=== PATIENT | male | born 1975 | race Caucasian/White ===

== ENCOUNTER 2017-04-23 05:54 | Emergency (ER) | payer OTHER, BC ==
[2017-04-23] MEDS ORDERED: Ketorolac 60 MG/2 ML SDV IM ONE (06:14)
[2017-04-23] MEDS ORDERED: Ketorolac 60 MG/2 ML SDV ONE (06:14)
--- NOTE | 2017-04-23 06:59 | EDM.PDOC ---
ED HPI GENERAL MEDICAL PROBLEM - General Chief Complaint: Upper Extremity Injury/Pain Stated Complaint: RIGHT ARM PAIN Time Seen by Provider: 04/23/17 06:56 Source of Information: Reports: Patient History Limitations: Reports: No Limitations - History of Present Illness INITIAL COMMENTS - FREE TEXT/NARRATIVE: History of present illness: []Patient fell on the standing position at work at 5 AM with an outstretched arm and felt sudden, sharp, grinding pain in his right shoulder. When he got up he initially could not move his shoulder joint, he states like his arm was hanging weight. After a few minutes he felt a pop in his shoulder with instant relief briefly but then he felt it "pop" again. He is unable to move his shoulder and has severe pain. He denies any neck, chest or rib pain, shortness of breath. Review of systems: As per history of present illness and below otherwise all systems reviewed and negative. Past medical history: As per history of present illness and as reviewed below otherwise noncontributory. Surgical history: As per history of present illness and as reviewed below otherwise noncontributory. Social history: No reported history of drug or alcohol abuse. Family history: As per history of present illness and as reviewed below otherwise noncontributory. Physical exam: General: Well developed, well nourished in NAD HEENT: Atraumatic, normocephalic, pupils reactive, negative for conjunctival pallor or scleral icterus, mucous membranes moist, throat clear, neck supple, nontender, trachea midline. Lungs: Clear to auscultation, breath sounds equal bilaterally, chest nontender. Heart: S1S2, regular, negative for clicks, rubs, or JVD. Abdomen: Soft, nondistended, nontender. Negative for masses or hepatosplenomegaly. Negative for costovertebral tenderness. Pelvis: Stable nontender. Genitourinary: Deferred. Rectal: Deferred. Extremities: Asymmetry of his shoulders with the right shoulder appearing flattened anteriorly, Neurovascular unremarkable. Neuro: Awake, alert, oriented. Cranial nerves II through XII unremarkable. Cerebellum unremarkable. Motor and sensory unremarkable throughout. Exam nonfocal. Diagnostics: []Right Shoulder x-ray Therapeutics: []Dilaudid for pain Impression: [] Plan: [] Definitive disposition and diagnosis as appropriate pending reevaluation and review of above. right upper extremity;right shoulder;right rib Pain Score (Numeric/FACES): 10 - Related Data Allergies Allergy/AdvReac Type Severity Reaction Status Date / Time No Known Allergies Allergy Verified 04/23/17 05:57 Home Meds: Home Meds . [No Known Home Meds] 04/23/17 [History] Past Medical History - Past Health History Medical/Surgical History: Denies Medical/Surgical History Social & Family History - Family History Family Medical History: Noncontributory - Tobacco Use Smoking Status *Q: Current Every Day Smoker Years of Tobacco use: 20 Packs/Tins Daily: 1 - Recreational Drug Use Recreational Drug Use: No Review of Systems - Review of Systems Review Of Systems: See Below (See history of present illness) ED EXAM, GENERAL - Physical Exam Exam: See Below (See history of present illness) ED TRAUMA EXTREMITY PROCEDURES - Joint Reduction Site: Shoulder (R) Technique: Other (Using the Tai technique (massage) without sedation and was well-tolerated with minimal pain) Number of Attempts: 1 Post-Reduction Imaging: Completely Reduced, No Fracture Seen Joint Reduction Complications: Yes Course - Vital Signs Last Recorded V/S: Last Vital Signs Temp 36.1 C 04/23/17 05:56 Pulse 71 04/23/17 07:42 Resp 12 04/23/17 07:42 BP 156/100 H 04/23/17 07:42 Pulse Ox 94 L 04/23/17 07:42 - Orders/Labs/Meds Orders: Active Orders 24 hr Category Date Time Status Shoulder Comp Rt [CR] Stat Exams 04/23/17 06:08 Taken Sodium Chloride 0.9% [Saline Flush] Med 04/23/17 07:07 Active 10 ml FLUSH ASDIRECTED PRN Sodium Chloride 0.9% [Saline Flush] Med 04/23/17 07:07 Active 2.5 ml FLUSH ASDIRECTED PRN DME for Discharge [COMM] Stat Oth 04/23/17 07:52 Ordered Saline Lock Insert [OM.PC] Stat Oth 04/23/17 07:07 Ordered Medication Orders Sodium Chloride (Saline Flush) 10 ml FLUSH ASDIRECTED PRN PRN Reason: Keep Vein Open Sodium Chloride (Saline Flush) 2.5 ml FLUSH ASDIRECTED PRN PRN Reason: Keep Vein Open Meds: Medications Generic Name Dose Route Start Last Admin Trade Name Freq PRN Reason Stop Dose Admin Sodium Chloride 10 ml 04/23/17 07:07 Saline Flush FLUSH ASDIRECTED PRN Keep Vein Open Sodium Chloride 2.5 ml 04/23/17 07:07 Saline Flush FLUSH ASDIRECTED PRN Keep Vein Open Discontinued Medications Generic Name Dose Route Start Last Admin Trade Name Coleen PRN Reason Stop Dose Admin Hydromorphone HCl 1 mg 04/23/17 07:07 04/23/17 07:15 Dilaudid IVPUSH 04/23/17 07:08 1 mg ONETIME ONE Administration Ketorolac Tromethamine 60 mg 04/23/17 06:14 04/23/17 06:18 Toradol IM 04/23/17 06:15 60 mg ONETIME ONE Administration Ketorolac Tromethamine Confirm 04/23/17 06:14 04/23/17 06:19 Toradol Administered 04/23/17 06:15 Not Given Dose 60 mg .ROUTE .STK-MED ONE Ondansetron HCl 4 mg 04/23/17 07:13 04/23/17 07:13 Zofran IVPUSH 04/23/17 07:14 4 mg ONETIME ONE Administration Ondansetron HCl Confirm 04/23/17 07:12 04/23/17 07:16 Zofran Administered 04/23/17 07:13 Not Given Dose 4 mg .ROUTE .STK-MED ONE Ondansetron HCl 4 mg 04/23/17 07:11 04/23/17 07:17 Zofran IVPUSH 04/23/17 07:12 Not Given ONETIME ONE Departure - Departure Time of Disposition: 08:42 Disposition: Home, Self-Care 01 Condition: Good Clinical Impression: Anterior dislocation of right shoulder Qualifiers: Encounter type: initial encounter Qualified Code(s): S43.014A - Anterior dislocation of right humerus, initial encounter - Discharge Information Referrals: PCP,None [Primary Care Provider] - Forms: ED Department Discharge Additional Instructions: The following information is given to patients seen in the emergency department who are being discharged to home. This information is to outline your options for follow-up care. We provide all patients seen in our emergency department with a follow-up referral. The need for follow-up, as well as the timing and circumstances, are variable depending upon the specifics of your emergency department visit. If you don't have a primary care physician on staff, we will provide you with a referral. We always advise you to contact your personal physician following an emergency department visit to inform them of the circumstance of the visit and for follow-up with them and/or the need for any referrals to a consulting specialist. The emergency department will also refer you to a specialist when appropriate. This referral assures that you have the opportunity for follow-up care with a specialist. All of these measure are taken in an effort to provide you with optimal care, which includes your follow-up. Under all circumstances we always encourage you to contact your private physician who remains a resource for coordinating your care. When calling for follow-up care, please make the office aware that this follow-up is from your recent emergency room visit. If for any reason you are refused follow-up, please contact the [facility] Emergency Department at and asked to speak to the emergency department charge nurse. Ibuprofen ice for pain with her shoulder immobilizer follow-up with orthopedics as needed [facility] [address], [address] [place] [address] - My Orders Last 24 Hours: My Active Orders 04/23/17 07:07 Sodium Chloride 0.9% [Saline Flush] 10 ml FLUSH ASDIRECTED PRN Sodium Chloride 0.9% [Saline Flush] 2.5 ml FLUSH ASDIRECTED PRN Saline Lock Insert [OM.PC] Stat 04/23/17 07:52 DME for Discharge [COMM] Stat - Assessment/Plan Last 24 Hours: My Active Orders 04/23/17 07:07 Sodium Chloride 0.9% [Saline Flush] 10 ml FLUSH ASDIRECTED PRN Sodium Chloride 0.9% [Saline Flush] 2.5 ml FLUSH ASDIRECTED PRN Saline Lock Insert [OM.PC] Stat 04/23/17 07:52 DME for Discharge [COMM] Stat
[2017-04-23] MEDS ORDERED: Sodium Chloride 0.9% 10 ML Syringe FLUSH PRN (07:07)
[2017-04-23] MEDS ORDERED: HYDROmorphone 2 MG/ML Syringe IVPUSH ONE (07:07)
[2017-04-23] MEDS ORDERED: Sodium Chloride 0.9% 2.5 ML Syringe FLUSH PRN (07:07)
[2017-04-23] MEDS ORDERED: Ondansetron 4 MG/2 ML SDV IVPUSH ONE ×2 (07:11→07:13)
[2017-04-23] MEDS ORDERED: Ondansetron 4 MG/2 ML SDV ONE (07:12)
--- NOTE | 2017-04-23 08:36 | CR ---
EXAMINATION: Right shoulder HISTORY: Reduction COMPARISON: Same day TECHNIQUE: 2 views FINDINGS/IMPRESSION: AP and Y views demonstrate reduction of a previously dislocated right shoulder. Bone mineralization and joint spaces appear preserved.
--- NOTE | 2017-04-23 10:24 | CR ---
EXAM DATE: 04/23/17 PATIENT'S AGE: 41 Patient: KATHY ELIZONDO Facility: [place], [place] Site . Site : [id number] Study: XRay Shoulder [id number]/[id number] 7:40:21 AM Ordering Physician: Doctor Johnson Final Report: Indication: Trauma. Patient fell. Technique: Three-view right shoulder. Findings: There is anterior dislocation of the glenohumeral joint. There is a displaced Bankart fragment off the inferior margin of the glenoid. The upper right ribs and clavicle appear intact. The AC joint remains anatomically aligned. Impression: Anterior dislocation of the right glenohumeral joint with evidence of a Bankart fracture off the inferior margin of the glenoid. Dictated by Teto Rosenbaum MD @ Apr 23 2017 7:43AM (Electronic Signature) Report Signed by Proxy. DENISSE
== END 2017-04-23 09:02 | disposition home or self-care (01) ==
LOC: MW.ED 05:54
DX: S43.014A Anterior dislocation of right humerus, initial encounter (principal); F17.210 Nicotine dependence, cigarettes, uncomplicated; X50.1XXA Overexertion from prolonged static or awkward postures, initial encounter
CPT/HCPCS: 23650; 73030; 96372; 96374; 96375; 99283; J1170; J1885; J2405